=== PATIENT | female | born 2000 | race African-American/Black ===

== ENCOUNTER 2018-08-28 06:25 | Inpatient (IN) ==
[2018-08-28] MEDS ORDERED: ONDANSETRON 4 MG/2 ML VIAL IV PRN (06:48)
[2018-08-28] MEDS ORDERED: ACETAMINOPHEN 325 MG TABLET PO PRN (06:48)
[2018-08-28] MEDS ORDERED: MEPERIDINE 50 MG/1 ML VIAL IV PRN (06:48)
[2018-08-28 07:05] LABS: Basophils # 0.1 10*3/uL (0.0-0.2); Basophils % 0.5 % (0.0-0.8); Eosinophils # 0.6 10*3/uL (0.0-0.87); Eosinophils % 5.8 % (0.00-10.9); Hematocrit 33.1 VOL% (35.7-47.0); Hemoglobin 9.8 GM/DL (12.0-16.0); Immature Granulocytes % 0.6 %; Immature Granulocytes Absolute 0.07 #; Lymphocytes # 2.8 10*3/uL (1.4-4.0); Lymphocytes % 24.9 % (21.3-54.2); Mean Corpuscular HGB Conc 29.6 GM/DL (32-36); Mean Corpuscular Hemoglobin 24 PG (27-34); Mean Corpuscular Volume 82.1 FL (87-102); Mean Platelet Volume 11.4 FL (9.6-12.0); Monocytes # 1.3 10*3/uL (0.11-0.8); Monocytes % 11.3 % (1.7-12.7); Neutrophils # 6.3 10*3/uL (1.4-7.4); Neutrophils % 56.9 % (38.7-73.9); Platelet Count 268 T/CUMM (130-400); Red Blood Count 4.03 MC/CUMM (3.8-5.5); Red Cell Distribution Width 15.9 % (9.3-17.3); White Blood Count 11.1 T/CUMM (4-12)
[2018-08-28] MEDS: LACTATED RINGERS 1,000 ML IV SCH ×2 (07:43→15:14)
[2018-08-28] MEDS: OXYTOCIN/LR 20 UNIT/1,000 ML BAG IV SCH (07:54)
[2018-08-28] MEDS ORDERED: AMPICILLIN INJ 2,000 MG in SODIUM CHLORIDE 0.9% 100 ML IV ONE (08:00)
[2018-08-28 09:59] LABS: Apearance,Urine Slightly Hazy (Clear); Bilirubin,Urine Negative (Negative); Blood, Urine Negative (Negative); Glucose,Urine (UA) Negative (Negative); Ketones,Urine Negative (Negative); Nitrite,Urine Negative (Negative); Protein,Urine Negative; Urine Color Yellow (Yellow); Urine Specific Gravity 1.018 (1.001-1.035); Urine Urobilinogen < 2.0 EU/DL (0.2-1.0)
[2018-08-28 10:07] LABS: Squamous Epithelial Cell,Urine Few /HPF (0-10)
[2018-08-28 10:08] LABS: Bacteria,Urine Moderate /HPF (Few)
[2018-08-28] MEDS: AMPICILLIN INJ 1,000 MG in SODIUM CHLORIDE 0.9% 100 ML IV SCH ×4 (12:39→23:42)
[2018-08-28] MEDS: BUTORPHANOL 2 MG/ML VIAL IV PRN ×2 (17:37→21:00)
[2018-08-28] MEDS ORDERED: LIDOCAINE 1% 50 ML VIAL ONE (21:29)
[2018-08-28] MEDS ORDERED: TRANEXAMIC ACID 1,000 MG/10 ML VIAL ONE (21:30)
[2018-08-28] MEDS ORDERED: miSOPROStol 200 MCG TABLET ONE (21:30)
[2018-08-28] MEDS ORDERED: CARBOPROST TROMETHAMINE 250 MCG/ML AMP IM ONE (21:31)
[2018-08-28] MEDS ORDERED: METHYLERGONOVINE 0.2 MG/1 ML AMP ONE (21:31)
[2018-08-29] MEDS: BUTORPHANOL 2 MG/ML VIAL IV PRN (01:58)
[2018-08-29] MEDS ORDERED: METHYLERGONOVINE 0.2 MG/1 ML AMP IM ONE (02:08)
[2018-08-29] MEDS ORDERED: OXYTOCIN/LR 20 UNIT/1,000 ML BAG IV ONE ×2 (02:14→02:29)
[2018-08-29] MEDS ORDERED: BENZOCAINE 20%/MENTHOL 0.5% SPRAY 56 GM CAN TOP PRN (02:29)
[2018-08-29] MEDS ORDERED: ACETAMINOPHEN 325 MG TABLET PO PRN (02:29)
[2018-08-29] MEDS ORDERED: LANOLIN 50% CREAM 0.3 OZ TUBE TOP PRN (02:29)
[2018-08-29] MEDS ORDERED: HYDROCORTISONE 2.5% RECTAL CREAM 30 GM TUBE TOP PRN (02:29)
[2018-08-29] MEDS ORDERED: ONDANSETRON 4 MG/2 ML VIAL IV PRN (02:29)
[2018-08-29] MEDS ORDERED: DIPH/TET/ACEL PERT BOOSTER VACCINE 0.5 ML VIAL IM ONE (02:29)
[2018-08-29] MEDS ORDERED: BISACODYL 10 MG SUPP RECTAL PRN (02:29)
[2018-08-29] MEDS ORDERED: RHO(D) IMMUNE GLOBULIN 300 MCG SYRINGE IM ONE (02:29)
[2018-08-29] MEDS ORDERED: WITCH HAZEL PADS 100/JAR TOP PRN (02:29)
[2018-08-29] MEDS ORDERED: MEASLES/MUMPS/RUBELLA VACCINE 0.5 ML VIAL SUBCUT ONE (02:29)
[2018-08-29 06:52] LABS: Basophils # 0.1 10*3/uL (0.0-0.2); Basophils % 0.2 % (0.0-0.8); Hematocrit 36.8 VOL% (35.7-47.0); Immature Granulocytes % 0.9 %; Immature Granulocytes Absolute 0.19 #; Lymphocytes # 1.1 10*3/uL (1.4-4.0); Lymphocytes % 4.9 % (21.3-54.2); Mean Corpuscular HGB Conc 29.6 GM/DL (32-36); Mean Corpuscular Hemoglobin 24 PG (27-34); Mean Corpuscular Volume 81.8 FL (87-102); Mean Platelet Volume 11.9 FL (9.6-12.0); Monocytes # 1.7 10*3/uL (0.11-0.8); Monocytes % 7.4 % (1.7-12.7); Neutrophils # 19.2 10*3/uL (1.4-7.4); Neutrophils % 86.6 % (38.7-73.9); Platelet Count 286 T/CUMM (130-400); Red Cell Distribution Width 15.9 % (9.3-17.3)
[2018-08-29 06:54] LABS: Hemoglobin 10.9 GM/DL (12.0-16.0); White Blood Count 22.2 T/CUMM (4-12)
[2018-08-29 06:58] LABS: Lymphocytes 3 % (20-55); Platelet Estimate Normal; Polychromasia Few; Segmented Neutrophils 93 % (50-85); Total Cells Counted 100
[2018-08-29] MEDS: IBUPROFEN 800 MG TABLET PO PRN ×2 (08:23→14:34)
[2018-08-29] MEDS: DOCUSATE SODIUM 100 MG CAPSULE PO SCH ×2 (08:27→20:56)
[2018-08-29] MEDS: oxyCODONE/ACETAMINOPHEN 5-325 MG TABLET PO PRN ×2 (09:34→20:58)
[2018-08-29] MEDS: OXYTOCIN/LR 20 UNIT/1,000 ML BAG IV SCH (20:59)
[2018-08-29] MEDS: LACTATED RINGERS 1,000 ML IV SCH (22:49)
[2018-08-30] MEDS: oxyCODONE/ACETAMINOPHEN 5-325 MG TABLET PO PRN ×2 (08:35→21:22)
[2018-08-30] MEDS: DOCUSATE SODIUM 100 MG CAPSULE PO SCH ×2 (08:36→21:20)
[2018-08-30] MEDS ORDERED: INFLUENZA VIRUS VACCINE 0.5 ML SYRINGE IM ONE (09:00)
[2018-08-30] MEDS: NITROFURANTOIN MACRO/MONO 100 MG CAPSULE PO SCH ×2 (14:21→21:20)
[2018-08-30] MEDS: IBUPROFEN 800 MG TABLET PO PRN (17:10)
[2018-08-31] MEDS: NITROFURANTOIN MACRO/MONO 100 MG CAPSULE PO SCH (09:09)
[2018-08-31] MEDS: IBUPROFEN 800 MG TABLET PO PRN (09:09)
[2018-08-31] MEDS: DOCUSATE SODIUM 100 MG CAPSULE PO SCH (09:09)
[2018-08-31] MEDS ORDERED: hydroCHLOROthiazide 25 MG TABLET PO ONE (09:21)
[2018-08-31 12:32] VITALS: BP 152/97
== END 2018-08-31 12:50 | disposition home or self-care (01) | DRG 560 ==
LOC: N.LDOUT 06:25 → N.LD 06:30 → N.OB 08-29 03:45
PROVIDERS: ADMIT Obstetrics & Gynecology; ATTEND Obstetrics & Gynecology

== ENCOUNTER 2020-03-15 13:41 | Observation (INO) ==
[2020-03-15] MEDS ORDERED: SODIUM CHLORIDE 0.9% 1,000 ML IV STA (15:35)
[2020-03-15 16:34] LABS: Basophils # 0.1 10*3/uL (0.0-0.2); Basophils % 0.5 % (0.0-0.8); Eosinophils # 0.3 10*3/uL (0.0-0.87); Hematocrit 27.8 VOL% (35.7-47.0); Hemoglobin 8.4 GM/DL (12.0-16.0); Immature Granulocytes % 0.5 %; Immature Granulocytes Absolute 0.06 #; Lymphocytes # 1.8 10*3/uL (1.4-4.0); Lymphocytes % 13.9 % (21.3-54.2); Mean Corpuscular HGB Conc 30.2 GM/DL (32-36); Mean Corpuscular Volume 87.7 FL (87-102); Mean Platelet Volume 9.9 FL (9.6-12.0); Monocytes % 3.8 % (1.7-12.7); Neutrophils % 79.3 % (38.7-73.9); Platelet Count 332 T/CUMM (130-400); Red Blood Count 3.17 MC/CUMM (3.8-5.5); Red Cell Distribution Width 12.9 % (9.3-17.3); White Blood Count 12.7 T/CUMM (4-12)
[2020-03-15 16:44] LABS: PT Patient Result 10.9 SECS (9.8-11.9)
[2020-03-15 16:59] LABS: Alanine Aminotransferase 19 U/L (13-56); Albumin 3.3 G/DL (3.4-5.0); Alkaline Phosphatase 82 U/L (45-117); Aspartate Amino Transferase 19 U/L (0-37); Bilirubin,Total < 0.39 MG/DL (0.2-1.0); Blood Urea Nitrogen 11 MG/DL (7-18); Calcium 9.2 MG/DL (8.5-10.1); Estimated Glom Filtration Rate 91 ML/MIN; Glucose 69 MG/DL (74-106); Osmolality,Calculated 271.7 MOS/KG (273-304); Total Protein 7.4 G/DL (6.4-8.3)
[2020-03-15] MEDS ORDERED: SODIUM CHLORIDE 0.9% 1,000 ML IV PRN (17:11)
[2020-03-15] MEDS ORDERED: LACTATED RINGERS 1,000 ML IV SCH (17:30)
[2020-03-15] MEDS ORDERED: OXYTOCIN/LR 20 UNIT/1,000 ML BAG IV ONE (18:55)
[2020-03-15] MEDS ORDERED: SUGAMMADEX 200 MG/2 ML VIAL IV ONE ×2 (19:07→19:18)
[2020-03-15] MEDS ORDERED: propofoL 200 MG/20 ML VIAL IV ONE (19:24)
[2020-03-15] MEDS ORDERED: ONDANSETRON 4 MG/2 ML VIAL ONE (19:25)
[2020-03-15] MEDS ORDERED: SUCCINYLCHOLINE 200 MG/10 ML VIAL ONE (19:25)
[2020-03-15] MEDS ORDERED: SEVOFLURANE 1 UNIT/15 MINUTE INH ONE (19:25)
[2020-03-15] MEDS ORDERED: LIDOCAINE 2% 5 ML VIAL ONE (19:25)
[2020-03-15] MEDS ORDERED: ROCURONIUM 100 MG/10 ML VIAL IV ONE (19:25)
[2020-03-15] MEDS ORDERED: MIDAZOLAM 2 MG/2 ML VIAL ONE (19:25)
[2020-03-15] MEDS ORDERED: fentaNYL 100 MCG/2 ML VIAL ONE (19:25)
[2020-03-15] MEDS ORDERED: KETOROLAC 30 MG/1 ML VIAL ONE (19:25)
[2020-03-15] MEDS ORDERED: DEXAMETHASONE 4 MG/1 ML VIAL ONE (19:25)
[2020-03-15] MEDS ORDERED: PHENYLEPHRINE 1 MG/10 ML SYRINGE IV ONE (19:26)
[2020-03-15] MEDS ORDERED: BENZOCAINE/MENTHOL LOZENGE 18/BOX PO PRN (20:32)
[2020-03-16 00:44] VITALS: BP 93/57
== END 2020-03-15 22:15 | disposition home or self-care (01) ==
LOC: N.EDINP 13:41 → N.ED 13:41 → N.OB 17:00
PROVIDERS: ADMIT Obstetrics & Gynecology; ATTEND Obstetrics & Gynecology